=== PATIENT | male | born 1990 | race Two or more races ===

== ENCOUNTER 2018-09-27 19:30 | Emergency (ER) | payer MEDICAID ==
[~2018-09-27] VITALS: Ht 170.2 cm; Wt 70.8 kg
--- NOTE | 2018-09-27 19:50 | NUR ---
ED Nurse Note: Pt walked in ER and c/o R ankle pain. Pt states he didn't twist or fall, he doesn't know why ankle is hurting. Pt is AO x 4times, VSS, on room air no distress. CHRIS seen Pt at bedside.
[2018-09-27] MEDS ORDERED: Ketorolac 30mg Inj IV ONE (20:00)
--- NOTE | 2018-09-27 20:00 | NUR ---
ED Nurse Note: Blood sample sent to lab.
--- NOTE | 2018-09-27 20:00 | Emergency Room Report ---
History of Present Illness General Chief Complaint: Lower Extremity Injury Source: Patient Present Illness HPI Patient presents with right ankle pain. He states it's painful to walk on. This has been going on for several days. He denies trauma. There is no erythema or obvious swelling. He denies numbness. He had this in the past and had swelling there. He got IV and he got better within a couple days. They told him that it was either gout or cellulitis. Patient in drug rehab. He denies hepatitis C. No fevers, chills, chest pain, palpitations, nausea, vomiting, diarrhea, dysuria , abdominal pain, shortness of breath, depression, visual changes, headache. Allergies: Coded Allergies: Cat Dander (Verified Allergy, Unknown, 09/27/18) Patient History Past Medical History: see triage record Social History: Reports: smoking; Denies: alcohol use - In the past, drug use - In the past Social History Narrative rehab Reviewed Nursing Documentation: PMH: Agreed; PSxH: Agreed Nursing Documentation-PMH Past Medical History: No History, Except For Hx Diabetes: Yes - pre diabetic Review of Systems All Other Systems: negative except mentioned in HPI Physical Exam Vital Signs Date Time Temp Pulse Resp B/P (MAP) Pulse Ox O2 Delivery O2 Flow Rate FiO2 09/27/18 19:42 99.0 70 16 129/80 98 Room Air Sp02 EP Interpretation: reviewed, normal General Appearance: well appearing, no apparent distress Head: normocephalic, atraumatic Eyes: bilateral eye normal inspection, bilateral eye PERRL ENT: hearing grossly normal, normal voice, moist mucus membranes Neck: full range of motion, supple Respiratory: no respiratory distress, speaking full sentences Cardiovascular #2: 2+ radial (R), 2+ dorsalis pedis (R) Gastrointestinal: normal inspection, normal bowel sounds Musculoskeletal: digits/nails normal, normal range of motion, no calf tenderness, other - Tenderness right ankle without warmth, effusion or ligament instability Neurologic: alert, oriented x3, normal gait, grossly normal Psychiatric: mood/affect normal Skin: no rash, other - Tattoos Medical Decision Making Diagnostic Impression: Primary Impression: Gout Qualified Codes: M10.9 - Gout, unspecified Additional Impression: Renal insufficiency ER Course Patient presents with right ankle pain with possible history of gout. Differential includes gout, arthritis, cellulitis amongst others. Clinically the patient does not have an infection in the area and there is been no trauma. Evaluation will be with x-ray and labs. The patient will be treated with Toradol. X-ray with calcaneal spur however no ankle abnormality. Labs significant for elevated uric acid and renal insufficiency. White count is slightly elevated. Patient is improved and a dose of colchicine is given. The diagnosis is discussed with the patient. He is able to ambulate and is improved. Discussion of possible treatment with allopurinol in the future was undertaken along with consideration of dietary changes. Also the renal dysfunction was discussed. Patient stable for outpatient observation and treatment. Laboratory Tests Test 09/27/18 19:57 09/27/18 20:15 Urine Color Ajsmyne Urine Appearance Clear Urine pH 7 (4.5-8.0) Urine Specific [place] 1.015 (1.005-1.035) Urine Protein 1+ (NEGATIVE) H Urine Glucose (UA) Negative (NEGATIVE) Urine Ketones 1+ (NEGATIVE) H Urine Blood Negative (NEGATIVE) Urine Nitrite Negative (NEGATIVE) Urine Bilirubin Negative (NEGATIVE) Urine Ictotest Negative (NEGATIVE) Urine Urobilinogen 1 MG/DL (0.0-1.0) H Urine Leukocyte Esterase Negative (NEGATIVE) Urine RBC 0 /HPF (0 - 0) Urine WBC 0-2 /HPF (0 - 0) Urine Squamous Epithelial Cells Occasional /LPF Urine Bacteria Few /HPF (NONE) Urine Mucus Moderate /LPF (NONE/OCC) H White Blood Count 11.7 K/UL (4.8-10.8) H Red Blood Count 5.48 M/UL (4.70-6.10) Hemoglobin 17.0 G/DL (14.2-18.0) Hematocrit 49.1 % (42.0-52.0) Mean Corpuscular Volume 90 FL (80-99) Mean Corpuscular Hemoglobin 31.1 PG (27.0-31.0) H Mean Corpuscular Hemoglobin Concent 34.7 G/DL (32.0-36.0) Red Cell Distribution Width 11.5 % (11.6-14.8) L Platelet Count 234 K/UL (150-450) Mean Platelet Volume 8.7 FL (6.5-10.1) Neutrophils (%) (Auto) 78.5 % (45.0-75.0) H Lymphocytes (%) (Auto) 14.3 % (20.0-45.0) L Monocytes (%) (Auto) 6.2 % (1.0-10.0) Eosinophils (%) (Auto) 0.6 % (0.0-3.0) Basophils (%) (Auto) 0.5 % (0.0-2.0) Sodium Level 139 MMOL/L (136-145) Potassium Level 4.2 MMOL/L (3.5-5.1) Chloride Level 102 MMOL/L (98-107) Carbon Dioxide Level 26 MMOL/L (21-32) Anion Gap 11 mmol/L (5-15) Blood Urea Nitrogen 18 mg/dL (7-18) Creatinine 1.4 MG/DL (0.55-1.30) H Estimate Glomerular Filtration Rate > 60 mL/min (>60) Glucose Level 89 MG/DL (74-106) Uric Acid 10.0 MG/DL (2.6-7.2) H Calcium Level 9.9 MG/DL (8.5-10.1) Total Bilirubin 0.8 MG/DL (0.2-1.0) Aspartate Amino Transferase (AST) 19 U/L (15-37) Alanine Aminotransferase (ALT) 27 U/L (12-78) Alkaline Phosphatase 112 U/L (46-116) Total Protein 8.8 G/DL (6.4-8.2) H Albumin 4.5 G/DL (3.4-5.0) Globulin 4.3 g/dL Albumin/Globulin Ratio 1.0 (1.0-2.7) Other X-Ray Diagnostic Results Other X-Ray Diagnostic Results : X-Ray ordered: Right ankle # of Views/Limited Vs Complete: 3 View Indication: Pain EP Interpretation: Yes Interpretation: no dislocation, no soft tissue swelling, no fractures Impression: Other Electronically Signed by: Electronically signed by Gennaro Hooper MD Last Vital Signs Date Time Temp Pulse Resp B/P (MAP) Pulse Ox O2 Delivery O2 Flow Rate FiO2 09/27/18 19:42 99.0 70 16 129/80 98 Room Air Status: improved Disposition: HOME, SELF-CARE Condition: Improved Scripts Colchicine (Colchicine) 0.6 Mg Capsule 0.6 MG PO BID, #14 CAP 1 Refill Prov: Gennaro Hooper MD 09/27/18 Indomethacin (INDOCIN) 25 Mg/5 Ml Oral.susp 25 MG PO Q8HR, #14 ML 1 Refill Prov: Gennaro Hooper MD 09/27/18 Gennaro Hooper MD Sep 27, 2018 20:00
--- NOTE | 2018-09-27 20:10 | NUR ---
ED Nurse Note: X ray at bedside.
[2018-09-27 20:26] LABS: APPEARANCE,URINE CLEAR; BILIRUBIN, URINE NEGATIVE (NEGATIVE); COLOR,URINE AMBER; GLUCOSE, URINE (UA) NEGATIVE (NEGATIVE); KETONES,URINE 1+ (NEGATIVE); LEUKOCYTE ESTERASE ,URINE NEGATIVE (NEGATIVE); NITRITE,URINE NEGATIVE (NEGATIVE); PH,URINE 7 (4.5-8.0); PROTEIN,URINE 1+ (NEGATIVE); UROBILINOGEN,URINE 1 MG/DL (0.0-1.0)
[2018-09-27 20:31] LABS: BASOPHILS % (AUTO) 0.5 % (0.0-2.0); EOSINOPHILS % (AUTO) 0.6 % (0.0-3.0); HEMATOCRIT 49.1 % (42.0-52.0); LYMPHOCYTES % (AUTO) 14.3 % (20.0-45.0); MEAN CORPUSCULAR VOLUME 90 FL (80-99); MONOCYTES % (AUTO) 6.2 % (1.0-10.0); NEUTROPHILS % (AUTO) 78.5 % (45.0-75.0); PLATELET COUNT 234 K/UL (150-450); RED BLOOD COUNT 5.48 M/UL (4.70-6.10); RED CELL DISTRIBUTION WIDTH 11.5 % (11.6-14.8); WHITE BLOOD COUNT 11.7 K/UL (4.8-10.8)
[2018-09-27 21:00] LABS: ANION GAP 11 mmol/L (5-15); BLOOD UREA NITROGEN 18 mg/dL (7-18); CALCIUM 9.9 MG/DL (8.5-10.1); CARBON DIOXIDE 26 MMOL/L (21-32); CHLORIDE 102 MMOL/L (98-107); CREATININE 1.4 MG/DL (0.55-1.30); POTASSIUM 4.2 MMOL/L (3.5-5.1); SODIUM 139 MMOL/L (136-145)
[2018-09-27 21:05] LABS: ALANINE AMINOTRANSFERASE 27 U/L (12-78); ALBUMIN 4.5 G/DL (3.4-5.0); ALKALINE PHOSPHATASE 112 U/L (46-116); ASPARTATE AMINO TRANSFERASE 19 U/L (15-37); BILIRUBIN,TOTAL 0.8 MG/DL (0.2-1.0)
--- NOTE | 2018-09-27 22:11 | Diagnostic Imaging Report ---
EXAM: XR Right Ankle Complete, 3 or More Views CLINICAL HISTORY: PAIN TECHNIQUE: Frontal, lateral and oblique views of the right ankle. COMPARISON: No relevant prior studies available. FINDINGS: Bones/joints: Tiny plantar calcaneal spur. No acute fracture. No dislocation. Soft tissues: Unremarkable. IMPRESSION: Tiny plantar calcaneal spur. Otherwise unremarkable exam
[2018-09-27] MEDS ORDERED: INDOCIN25 MG/5 ML PO (22:16)
[2018-09-27] MEDS ORDERED: COLCHICINE0.6 M1 PO (22:16)
[2018-09-27 22:30] VITALS: BP 123/77
--- NOTE | 2018-09-27 22:30 | NUR ---
ED Nurse Note: Pt cleared DC by CHRIS. Pt is AO x 4times, VSS, on room air no distress. ID bend and IV site removed. DC and Meds instructions given to Pt, Pt understood well. Belongings given to Pt. Pt walked out unit with steady gait with friend.
== END 2018-09-27 22:30 | disposition home or self-care (01) ==
LOC: EMR 20:00
DX: M10.9 Gout, unspecified (principal); N28.9 Disorder of kidney and ureter, unspecified; F17.200 Nicotine dependence, unspecified, uncomplicated; R73.03 Prediabetes
CPT/HCPCS: 36415; 73610; 80053; 81001; 84550; 85025; 96374; 99284; J1885